=== PATIENT | male | born 1990 | race Caucasian/White ===

== ENCOUNTER 2021-10-28 17:59 | Emergency (ER) | payer OTHER, SELFPAY ==
[2021-10-28 18:00] VITALS: BP 157/106; PULSE 97; RESP 15; TEMP 36.4; O2SAT 95; BMI 44.1
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
[2021-10-28] MEDS: Ondansetron ODT 4 MG Tablet PO (19:11)
[2021-10-28] MEDS: morphine 10 MG/ML Syringe IV (19:11)
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
== END 2021-10-28 21:28 | disposition home or self-care (01) ==
PROVIDERS: Emergency Provider Emergency Medicine; PCP Family Medicine; Visit Provider Emergency Medicine
DX: S42.001A Fracture of unspecified part of right clavicle, initial encounter for closed fracture (principal); E66.9 Obesity, unspecified; S22.41XA Multiple fractures of ribs, right side, initial encounter for closed fracture; V89.0XXA Person injured in unspecified motor-vehicle accident, nontraffic, initial encounter
CPT/HCPCS: 70450; 71045; 72125; 73030; 96372; 96374; 99283; A4216